=== PATIENT | male | born 1970 ===

== ENCOUNTER 2022-10-25 04:54 | Day surgery (SDC) | payer OTHER ==
[2022-10-19 08:07] VITALS: BMI 31.4
[2022-10-25 12:49] VITALS: TEMP 98
[2022-10-25 13:32] VITALS: BP 151/93; PULSE 72; RESP 18
== END 2022-10-25 13:40 | disposition home or self-care (01) ==
LOC: JASU-ENDO 04:54
PROVIDERS: ATTEND Student in an Organized Health Care Education/Training Program
PROC: 0DJD8ZZ Inspection of Lower Intestinal Tract, Via Natural or Artificial Opening Endoscopic (ICD-10-PCS; principal; 2022-10-25 14:30)
DX: Z12.11 Encounter for screening for malignant neoplasm of colon (principal); K64.8 Other hemorrhoids